=== PATIENT | female | born 1960 | race Caucasian/White ===

== ENCOUNTER 2018-10-25 14:37 | Inpatient (IN) | payer MEDICAID, OTHER ==
[~2018-10-25] VITALS: Ht 160 cm; Wt 62.2 kg
--- NOTE | 2018-10-25 00:30 | NUR ---
PT IN LOW BED SIDE RAILS UP X2. V/S FOLLOWS T T 97.2 P 50 R 18B/P 90/41. PT C/O NORCO NOT EFFECTIVE ENOUGH, PT CONTINUED TO COMPLAIN OF PAIN IN CHEST AND RADIATES TO LEFT ARM. DR. LEWIS CALLED AWAITING NEW ORDERS.
[2018-10-25 14:40] VITALS: BP 90/52
--- NOTE | 2018-10-25 14:58 | NUR ---
PT BIB SLEF WITH C/O CP X6 DAYS,PAIN 8/10 . PAIN RADIATES TO HER LOWER LFT ARM AND UP TO HER NECK. TOOK TRAMADOL WITH NO RELIEF. PER PT, HAS HEART PALPITATIONS. PT ON TRAMADOL 50 MG PRN, SERTALINE HCL 100 MG PO DAILY . HX OF LYMPHOMA. DENEIS ANY ALLAERIES TO MEDS. EKG AT THE BEDSIDE.
--- NOTE | 2018-10-25 16:20 | NUR ---
DR. ARRIOLA TALKING TO PATIENT WITH HELP OF TRANSLATION SERVICE. HAND DRILLER ID [id number], NAME
[2018-10-25 16:31] LABS: BASOPHILS % (AUTO) 0.5 % (0.0-2.0); EOSINOPHILS # (AUTO) 0.1 K/uL (0-0.4); EOSINOPHILS % (AUTO) 0.8 % (0.0-4.0); HEMATOCRIT 37.6 % (36-48); HEMOGLOBIN 12.4 g/dL (12.0-16.0); LYMPHOCYTES # (AUTO) 2.7 K/uL (2.5-16.5); LYMPHOCYTES % (AUTO) 36.7 % (20.5-51.1); MEAN CORPUSCULAR HEMOGLOBIN 29 pg (27-31); MEAN CORPUSCULAR HGB CONC 33 g/dL (33-37); MEAN CORPUSCULAR VOLUME 88.7 fL (80-94); MONOCYTES # (AUTO) 0.4 K/uL (0.8-1.0); MONOCYTES % (AUTO) 5.8 % (1.7-9.3); NEUTROPHILS # (AUTO) 4.2 K/uL (1.8-7.7); NEUTROPHILS % (AUTO) 56.2 % (42.2-75.2); PLATELET COUNT (AUTO) 216 K/uL (140-450); RED BLOOD CELL COUNT(AUTO) 4.24 MIL/uL (4.20-5.40); RED CELL DISTRIBUTION WIDTH 12.9 % (11.6-13.7); WHITE BLOOD COUNT (AUTO) 7.4 K/uL (4.8-10.8)
[2018-10-25] MEDS ORDERED: MORPHINE SULFATE 4 MG/ML SYR IVP ONE (16:35)
[2018-10-25 16:47] LABS: ANION GAP 13.8 (8-16); CARBON DIOXIDE 26.2 mmol/L (21-32); CREATININE 0.8 mg/dL (0.6-1.3); PROTHROMBIN TIME 9.1 secs (10.8-13.4)
[2018-10-25 16:53] LABS: ALBUMIN 3.8 g/dL (3.4-5.0); TOTAL BILIRUBIN 0.2 mg/dL (0.0-1.0)
[2018-10-25] MEDS ORDERED: NACL 0.9% 1,000 ML IV ONE ×2 (17:15→18:35)
[2018-10-25] MEDS ORDERED: fentaNYL 0.05 MG/ML VIAL IVP ONE (17:15)
[2018-10-25 18:27] LABS: APPEARANCE,URINE CLEAR (CLEAR); BILIRUBIN,URINE NEGATIVE (NEGATIVE); BLOOD, URINE 1+ (NEGATIVE); COLOR,URINE YELLOW (YELLOW); LEUKOCYTE ESTERASE ,URINE NEGATIVE (NEGATIVE); NITRITE, URINE NEGATIVE (NEGATIVE); UGLUCOSE NEGATIVE (NEGATIVE)
--- NOTE | 2018-10-25 18:30 | NUR ---
MD MADE AWARE OF THE LOW BP 86/44, HR 55. ORDERED SECOND BOLUS NS 1L . PT ADMINISTETRED IT.
[2018-10-25 18:46] LABS: RBC,URINE 0-5 /HPF (0-5); WBC,URINE 0-5 /HPF (0-5)
--- NOTE | 2018-10-25 19:22 | NUR ---
ENDORSED PT TO PM NURSE AT THE BEDSIDE. PT STABLE.
--- NOTE | 2018-10-25 19:22 | NUR ---
PT REPORTS L SIDED CP RADIATING TO L ARM AND NECK, REPORTS IMPROVEMENT AT 5/10 AT THIS TIME
--- NOTE | 2018-10-25 19:22 | NUR ---
RECEIVED REPORT FROM AM NURSE. PT LAYING IN BED, AT BEDSIDE. RR EVEN AND UNLABORED. BP 94/52, HR 58
[2018-10-25] MEDS ORDERED: SERT100T PO (19:25)
[2018-10-25] MEDS ORDERED: LOVENOX 1MG/KG Q12H SUBQ SCH (19:45)
--- NOTE | 2018-10-25 20:02 | NUR ---
Pt requesting to eat. Spoke with Dr. Quesada made aware and is okay with her eating. states he will bring her something to eat. Pt updated on her status and waiting to hear from insurance. Pt verbalized understanding.
--- NOTE | 2018-10-25 20:33 | NUR ---
PT C/O NAUSEA, DR. BONILLA MADE AWARE.
[2018-10-25] MEDS ORDERED: ONDANSETRON 4 MG/2 ML VIAL IVP ONE (20:35)
[2018-10-25] MEDS ORDERED: ALBUTEROL 0.083% 2.5 MG/3 ML NEBU INH PRN (20:45)
[2018-10-25] MEDS ORDERED: ONDANSETRON 4 MG/2 ML VIAL IVP PRN (20:45)
[2018-10-25] MEDS ORDERED: MIDODRINE 5 MG TAB PO PRN (20:45)
[2018-10-25] MEDS ORDERED: LORazepam 2 MG/ML VIAL IVP PRN (20:45)
[2018-10-25] MEDS ORDERED: ENOXAPARIN 60 MG/0.6 ML SYR SUBQ SCH (21:00)
--- NOTE | 2018-10-25 21:40 | NUR ---
PT LAYING IN BED, RR EVEN AND UNLABORED. VS NOTED. REPORTS 8/10 CP AT THIS TIME. ALL NEEDS MET.
--- NOTE | 2018-10-25 21:41 | NUR ---
Patient will be admitted to care of DR LEWIS. Admited to [facility]. Will go to room 120B. Belongings list completed. Report to LIZBET Danielson RN.
[2018-10-25 21:50] VITALS: BP 86/38
--- NOTE | 2018-10-25 21:50 | NUR ---
PT BROUGHT UP TO FLOOR BY WHEEL CHAIR, TO ROOM 120. PT AMBULATED INDEPENDENTLY TO BED B. REPORT GIVEN BY SHAWANDA BLAKE ER NURSE AT BEDSIDE . PT IN STABLE CONDITION.
--- NOTE | 2018-10-25 22:20 | NUR ---
PT IN BED ADMISSION QUESTIONS ASKED VIA INTERPRETOR IRENE #[id number] FROM [employer]. NASAL MRSA SWAB DONE. V/S FOLLOWS T 98.5 P 64 R 18 B/P 86/38. PT GIVEN DUE MEDS AT THIS TIME.
[2018-10-25] MEDS: NACL 0.9% 1,000 ML IV SCH (22:44)
[2018-10-25] MEDS: HYDROCORTISONE NA SUCC 100 MG/2 ML VIAL IV SCH (22:45)
[2018-10-25] MEDS: HYDROcodone/APAP 5/325 MG 1 TAB TAB PO PRN (22:45)
--- NOTE | 2018-10-25 22:45 | NUR ---
PT C/O OF MODERATE PAIN IN CHEST, PT GIVEN NOCO PO/PRN PT ALSO GIVEN MIDODRINE PO/PRN FOR DECREASED B/P. PT ALSO REQUESTED SANDWICH WAS PROVIDED FOR HER. IV SITE ON RIGHT HAND INTACT AND FLUSHED PATENT.
--- NOTE | 2018-10-26 01:00 | NUR ---
DR. LEWIS CALLED BACK WITH AN ORDER FOR MORPHINE 2MG IVP Q 3HRS PRN FOR SEVERE PAIN.
--- NOTE | 2018-10-26 01:15 | NUR ---
WENT TO CHECK ON PT , SHE WAS SLEEPING BUT AROUSABLE TO LIGHT SHAKING AND NAME, PT SAID THAT SHE IS NOT IN A LOT OF PAIN ONLY A LITTLE, SHE SAID THAT SHE DOESN;T NEED ANYTHING FOR PAIN NOW.
[2018-10-26] MEDS ORDERED: MORPHINE SULFATE 2 MG/ML SYR IVP PRN (01:30)
[2018-10-26] MEDS: NACL 0.9% 1,000 ML IV SCH ×2 (06:45→12:52)
[2018-10-26] MEDS: HYDROCORTISONE NA SUCC 100 MG/2 ML VIAL IV SCH ×2 (06:48→12:51)
[2018-10-26 06:49] LABS: ALBUMIN 3.3 g/dL (3.4-5.0); CARBON DIOXIDE 22.1 mmol/L (21-32); CREATININE 0.8 mg/dL (0.6-1.3); MAGNESIUM 2.1 mg/dL (1.8-2.4); POTASSIUM 4.1 mmol/L (3.5-5.1); TOTAL BILIRUBIN 0.2 mg/dL (0.0-1.0)
[2018-10-26 06:50] VITALS: BP 90/54
--- NOTE | 2018-10-26 06:54 | NUR ---
PT SLEEPING NO S/S OF PAIN OR DISTRESS NOTED. PTY GIVEN ORDERED MEDS, IV SITE INTACT AND FLUSHED PATENT.
--- NOTE | 2018-10-26 07:22 | NUR ---
RECEIVED BEDSIDE REPORT FROM LOU SOMERS. PT STABLE, AWAKE, ALERT AND ORIENTED X4. NO SIGNS OF DISTRESS NOTED. DENIES PAIN OR SOB. NO REDNESS, SWELLING, OR INFLAMMATION NOTED ON IV SITE. CALL [facility]U WITHIN REACH. BED IN LOWEST POSITION. SAFETY MEASURES IN PLACE. PLAN OF CARE REVIEWED.
--- NOTE | 2018-10-26 07:23 | NUR ---
REPORT GIVEN TO JUDY PHILLIP AT BEDSIDE FOR CONTINUITY OF CARE, PT IN STABLE CONDITION.
[2018-10-26 07:26] LABS: BASOPHILS % (AUTO) 0.3 % (0.0-2.0); EOSINOPHILS % (AUTO) 0.1 % (0.0-4.0); HEMATOCRIT 35.6 % (36-48); HEMOGLOBIN 11.9 g/dL (12.0-16.0); LYMPHOCYTES # (AUTO) 1.6 K/uL (2.5-16.5); MEAN CORPUSCULAR HEMOGLOBIN 30 pg (27-31); MEAN CORPUSCULAR HGB CONC 33 g/dL (33-37); MONOCYTES # (AUTO) 0.1 K/uL (0.8-1.0); MONOCYTES % (AUTO) 1.8 % (1.7-9.3); NEUTROPHILS # (AUTO) 4.3 K/uL (1.8-7.7); NEUTROPHILS % (AUTO) 70.8 % (42.2-75.2); PLATELET COUNT (AUTO) 205 K/uL (140-450); RED CELL DISTRIBUTION WIDTH 13.4 % (11.6-13.7); WHITE BLOOD COUNT (AUTO) 6.1 K/uL (4.8-10.8)
[2018-10-26 08:00] VITALS: BP 101/45
--- NOTE | 2018-10-26 08:29 | NUR ---
ADMINISTERED PRN MORPHINE FOR 8/10 C/O CHEST PAIN THAT RADIATES TO THE LEFT SHOULDER DOWN TO THE LEFT UPPER ARM. PT TOLERATED WELL. WILL CONTINUE TO MONITOR.
--- NOTE | 2018-10-26 10:15 | NUR ---
PT AMBULATED TO THE BATHROOM WITH STEADY GAIT. NO OTHER NEEDS AT THIS TIME.
--- NOTE | 2018-10-26 11:30 | NUR ---
DR LEWIS AT THE BEDSIDE.
--- NOTE | 2018-10-26 13:04 | NUR ---
ADMINISTERED SCHEDULED MEDICATION, PT TOLERATED WELL. CHANGED IVF BAG. WILL CONTINUE TO MONITOR.
[2018-10-26] MEDS: HYDROcodone/APAP 5/325 MG 1 TAB TAB PO PRN (13:10)
--- NOTE | 2018-10-26 13:11 | NUR ---
ADMINISTERED PRN NORCO FOR 6/10 C/O OF LEFT SHOULDER PAIN. PT TOLERATED WELL. WILL CONTINUE TO MONITOR.
--- NOTE | 2018-10-26 14:13 | NUR ---
PAGED DR LEWIS REGARDING PT'S SCHEDULED ECHOCARDIOGRAM.
--- NOTE | 2018-10-26 14:17 | NUR ---
SPOKE WITH DR LEWIS ON THE TELEPHONE. PER DR LEWIS, PT IS OK FOR DISCHARGE, ECHOCARDIOGRAM NOT NEEDED.
--- NOTE | 2018-10-26 15:50 | NUR ---
D/C INSTRUCTIONS, PAPERWORK, AND PRESCRIPTION GIVEN. PT VERBALIZED UNDERSTANDING. QUESTIONS AND CONCERNS WERE ADDRESSED. GAVE PT INSTRUCTIONS ON FOLLOW UP APPOINTMENTS PER DR LEWIS'S ORDER. PT VERBALIZED UNDERSTANDING. D/C IV, CATHETER TIP INTACT, BLEEDING CONTROLLED. PT STABLE, AMBULATES WITH STEADY GAIT, COMMUNICATES APPROPRIATELY WITH STAFF. SKIN INTACT. PNEUMONIA VACCINE AND FLU VACCINE N/A. PT TOOK ALL BELONGINGS WITH HER. SISTER IN LAW AT THE BEDSIDE. WILL ESCORT PT TO THE LOBBY. PT D/C TO HOME.
--- NOTE | 2018-10-28 10:03 | NUR ---
will endorse to case management to ff up
--- NOTE | 2018-10-29 10:19 | NUR ---
KEVIN called patient's PCP's office [phone] to schedule an appointment with Dr. Aura Sánchez. KEVIN spoke with Lily. Patient's appointment will be on 11/05/2018 at 3:20PM at [address] [place] [id number]. [place] [address]. KEVIN called patient's home phone number [phone] and left voicemail requesting call back. KEVIN will follow up as needed.
== END 2018-10-26 16:28 | disposition home or self-care (01) | DRG 351 ==
LOC: MED 14:37 → MTU 20:49
PROVIDERS: ADMIT Internal Medicine Pulmonary Disease; ATTEND Internal Medicine Pulmonary Disease
DX: M19.012 Primary osteoarthritis, left shoulder (principal); F41.9 Anxiety disorder, unspecified; Z91.19 Patient's noncompliance with other medical treatment and regimen; Z88.0 Allergy status to penicillin
CPT/HCPCS: 36415; 71045; 80053; 81001; 83605; 83690; 83735; 83880; 84484; 85025; 85379; 85610; 87081; 93005; 96361; 96372; 96374; 99285; J1650; J1720; J2060; J2270; J2405; J3010; J7030; Q0092

== ENCOUNTER 2019-02-24 12:40 | Emergency (ER) | payer OTHER ==
[~2019-02-24] VITALS: Ht 162.6 cm; Wt 60.8 kg
[~2019-02-24 12:40] MED LIST: SERT100T PO
[2019-02-24 12:42] VITALS: BP 107/72
[2019-02-24] MEDS ORDERED: HYDROcodone/APAP 5/325 MG 1 TAB TAB PO ONE (13:05)
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
--- NOTE | 2019-02-24 13:13 | NUR ---
PT GOING TO RADIOLOGY AT THIS TIME BY WHEELCHAIR
[2019-02-24 15:06] VITALS: BP 112/60
== END 2019-02-24 15:07 | disposition home or self-care (01) ==
LOC: MED 12:40
DX: S16.1XXA Strain of muscle, fascia and tendon at neck level, initial encounter (principal); S13.9XXA Sprain of joints and ligaments of unspecified parts of neck, initial encounter; S46.911A Strain of unspecified muscle, fascia and tendon at shoulder and upper arm level, right arm, initial encounter; S43.401A Unspecified sprain of right shoulder joint, initial encounter; Z79.899 Other long term (current) drug therapy; Z88.0 Allergy status to penicillin; V49.69XA Unspecified car occupant injured in collision with other motor vehicles in traffic accident, initial encounter; Y93.89 Activity, other specified; Y92.410 Unspecified street and highway as the place of occurrence of the external cause; Y99.8 Other external cause status
CPT/HCPCS: 71046; 72125; 73030; 99284

== ENCOUNTER 2019-07-20 07:12 | Emergency (ER) | payer OTHER ==
[~2019-07-20] VITALS: Ht 157.5 cm; Wt 60.8 kg
--- NOTE | 2019-07-20 07:12 | NUR ---
PT BIBA BLS TO ER BED 11 Addendum: 07/20/19 at 0734 by AGUEDA PT TAKEN TO ER BED 04
[2019-07-20 07:19] VITALS: BP 92/57
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
--- NOTE | 2019-07-20 07:35 | NUR ---
Dr Mendez evaluating patient at bedside.
--- NOTE | 2019-07-20 07:57 | NUR ---
pt transported to [facility] via bed
--- NOTE | 2019-07-20 08:45 | NUR ---
pt. resting in bed comfortably, AAO x 4. no further needs at this time. bed at lowest and locked, rails up x 2.
--- NOTE | 2019-07-20 09:17 | NUR ---
pt ambulated to restroom with steady gait.
--- NOTE | 2019-07-20 09:35 | NUR ---
Patient discharged with v/s stable. Written and verbal after care instructions given and explained. Patient verbalized understanding. Ambulatory with steady gait. All questions addressed prior to discharge. Advised to follow up with PMD.
[2019-07-20 09:36] VITALS: BP 118/86
== END 2019-07-20 09:35 | disposition home or self-care (01) ==
LOC: MED 07:12
DX: M25.562 Pain in left knee (principal); M25.512 Pain in left shoulder; Z88.0 Allergy status to penicillin; Z79.899 Other long term (current) drug therapy; Z85.72 Personal history of non-Hodgkin lymphomas; V89.2XXA Person injured in unspecified motor-vehicle accident, traffic, initial encounter; Y93.89 Activity, other specified; Y92.89 Other specified places as the place of occurrence of the external cause; Y99.8 Other external cause status
CPT/HCPCS: 70450; 72125; 73030; 73562; 99283; 99285